=== PATIENT | male | born 1960 | race African-American/Black ===

== ENCOUNTER → 2018-01-23 | Emergency (ER) | payer SELFPAY, OTHER | END | disposition left against medical advice (07) | LOC: E/R 06:16 | DX: Z53.21 Procedure and treatment not carried out due to patient leaving prior to being seen by health care provider (principal) ==

== ENCOUNTER 2018-04-19 08:45 | Inpatient (IN) | payer OTHER ==
[~2018-04-19 08:45] MED LIST: ETOMIDATE 20 MG INJ; SUCCINYLCHOLINE CHLORIDE 100 MG/5 ML SYG IV
[2018-04-19] MEDS ORDERED: PROPOFOL 100 ML (09:22)
[2018-04-19] MEDS: ASPIRIN 300 MG SUPP PR (09:24)
[2018-04-19] MEDS: FUROSEMIDE 40 MG INJ IV (09:24)
[2018-04-19] MEDS: MIDAZOLAM (DRIP) 50 mg/50 mL 50 ML IV ×3 (09:25→14:12)
[2018-04-19] MEDS: SOD CHLORIDE 0.9% 1,000 ML IV ×5 (09:25→20:50)
[2018-04-19 09:26] LABS: HEMATOCRIT 44.9 % (42.0-52.0); HEMOGLOBIN 14.6 g/dl (14.0-18.0); MEAN CORPUSCULAR HEMOGLOBIN 29.2 pg (29.0-33.0); MEAN CORPUSCULAR HGB CONC 32.5 g/dl (32.0-37.0); MEAN CORPUSCULAR VOLUME 89.8 fl (82.0-101.0); MEAN PLATELET VOLUME 9.8 fl (7.4-10.4); PLATELET COUNT 388 10^3/UL (140-415); POSITIVE DIFF @See below; RED CELL DISTRIBUTION WIDTH 15.5 % (11.5-14.5)
[2018-04-19 09:26] LABS: WHITE BLOOD COUNT 11.2 10^3/ul (4.8-10.8)
[2018-04-19 09:29] LABS: ADD MAN DIFF? YES
[2018-04-19] MEDS: PROPOFOL 100 ML IV ×3 (09:30→15:13)
[2018-04-19 09:47] LABS: ALANINE AMINOTRANSFERASE 11 IU/L (13-69); ALBUMIN 3.6 g/dl (3.3-4.9); ALBUMIN/GLOBULIN RATIO 1.05; ALKALINE PHOSPHATASE 62 IU/L (42-121); ANION GAP 18 (8-16); ASPARTATE AMINO TRANSFERASE 25 IU/L (15-46); BILIRUBIN,INDIRECT 0.8 mg/dl (0-1.1); BILIRUBIN,TOTAL 0.8 mg/dl (0.2-1.3); BLOOD UREA NITROGEN 18 mg/dl (7-20); CALCIUM 8.3 mg/dl (8.4-10.2); CARBON DIOXIDE 18 mmol/L (21-31); CHLORIDE 103 mmol/L (97-110); CREATININE 1.83 mg/dl (0.61-1.24); GLUCOSE 148 mg/dl (70-220); LIPASE 54 U/L (23-300); POTASSIUM 3.4 mmol/L (3.5-5.1); SODIUM 136 mmol/L (135-144)
[2018-04-19] MEDS: IOHEXOL 350MG/ML 50 ML BTL (09:48)
[2018-04-19] MEDS: SOD CHLORIDE 0.9% 100 ML (09:48)
[2018-04-19] MEDS: IOHEXOL 100 ML (09:48)
[2018-04-19] MEDS: LORAZEPAM 2 MG INJ IV (09:54)
[2018-04-19 09:58] LABS: TROPONIN-I < 0.012 ng/ml (0.000-0.120)
[2018-04-19 10:24] LABS: AADO2 Arterial 602.7 mmHg (7.0-24.0); Allen Test ACCEPTAB; Arterial Base Excess -12.5 mmol/L (-3.0-3); Arterial Blood Gas Oxygen Sat 93.3 mmHG (95.0-98.0); Arterial COHb 1.3 % (0.0-3.0); Arterial Fraction of Oxyhgb 91.9 % (93.0-99.0); Arterial HCO3 13.8 mmol/L (22.0-26.0); Arterial MetHb 0.2 % (0.0-1.5); Arterial Total Hemglobin 14.4 g/dl (12.0-18.0); Arterial pCO2 33.2 mmhg (35-45); MODE VENT - AC; Site Left Radial
[2018-04-19] MEDS: CEFTRIAXONE 1 GM/50 ML (PMX) 50 ML IVPB (10:37)
[2018-04-19 10:49] LABS: ANISOCYTOSIS 1+ (0-0); BAND NEUTROPHILS #M 4.9 10^3/ul (0.0-0.6); BAND NEUTROPHILS % (M) 44 % (0-4); GIANT THROMBO% (M) 1 % (0-0); LYMPHOCYTES % (M) 9 % (15-51); METAMYELOCYTES #M 0.3 10^3/ul (0.0-0.0); METAMYELOCYTES %M 3 % (0-0); MICROCYTOSIS 1+ (0-0); MONOCYTE #M 0.6 10^3/ul (0.3-0.9); MONOCYTES % (M) 6 % (0-11); PLATELET ESTIMATE NORMAL; POIKILOCYTOSIS 1+ (0-0); POLYCHROMASIA 3+ (0-0); REACTIVE LYMPHOCYTES #M 0.2 10^3/ul (0.0-0.0); REACTIVE LYMPHOCYTES% (M) 2 % (0-0); SEG NEUT #M 4.6 10^3/ul (1.6-7.5); SEGMENTED NEUTROPHILS (M) % 36 % (39-77); SMUDGE%M 2 % (0-0)
[2018-04-19] MEDS ORDERED: VANCOMYCIN IV PER PHARMACY XX (11:00)
[2018-04-19] MEDS ORDERED: ACETAMINOPHEN 650 MG SUPP PR (11:00)
[2018-04-19] MEDS ORDERED: IPRATROPIUM (HFA) 12.9 GM INHALER INH (11:00)
[2018-04-19] MEDS ORDERED: BISACODYL 10 MG SUPP PR (11:00)
[2018-04-19] MEDS ORDERED: MAGNESIUM HYDROXIDE 30ML CUP PO (11:00)
[2018-04-19] MEDS ORDERED: ALBUTEROL HFA 8 GM INHALER INH (11:00)
[2018-04-19] MEDS ORDERED: NITROGLYCERIN (SL) 0.4 MG TAB SL (11:00)
[2018-04-19] MEDS ORDERED: ONDANSETRON 4 MG INJ IV (11:00)
[2018-04-19] MEDS ORDERED: DOCUSATE SODIUM 100 MG CAP PO (11:00)
[2018-04-19] MEDS ORDERED: LORAZEPAM 2 MG INJ IV (11:00)
[2018-04-19] MEDS ORDERED: morphine 2 MG INJ IV (11:00)
[2018-04-19] MEDS: AZITHROMYCIN 500MG/NS (PMX) 250 ML IVPB (11:19)
[2018-04-19] MEDS ORDERED: FENTAnyl (DRIP) 1000 mcg/100mL 100 ML IV (12:30)
[2018-04-19] MEDS: NICOTINE (21 MG/24 HR) PATCH TRANSDERM ×2 (12:30→14:11)
[2018-04-19] MEDS: IPRATROPIUM (HFA) 12.9 GM INHALER INH ×3 (13:00→21:00)
[2018-04-19] MEDS: ALBUTEROL HFA 8 GM INHALER INH ×3 (13:00→21:00)
[2018-04-19 13:19] LABS: BENZODIAZEPINES Negative (NEGATIVE); COCAINE Negative (NEGATIVE)
[2018-04-19 13:30] LABS: BARBITURATES Negative (NEGATIVE); OPIATES Negative (NEGATIVE)
[2018-04-19 13:32] LABS: AMPHETAMINE/METHAMPHETAMINE POSITIVE (NEGATIVE); CANNABINOIDS Positive (NEGATIVE)
[2018-04-19] MEDS: HEPARIN 5,000 UNIT/0.5 ML VIAL SC ×2 (13:47→22:00)
[2018-04-19] MEDS: CEFEPIME 2GM/50 ML (PMX) 50 ML IVPB (14:00)
[2018-04-19 14:18] LABS: ANION GAP 13 (8-16); BLOOD UREA NITROGEN 22 mg/dl (7-20); CALCIUM 7.4 mg/dl (8.4-10.2); CARBON DIOXIDE 18 mmol/L (21-31); CHLORIDE 109 mmol/L (97-110); CREATININE 1.88 mg/dl (0.61-1.24); GLUCOSE 118 mg/dl (70-220); POTASSIUM 3.6 mmol/L (3.5-5.1); SODIUM 136 mmol/L (135-144)
[2018-04-19] MEDS: VANCOMYCIN 2 GM in SOD CHLORIDE 0.9% 500 ML IVPB (14:34)
[2018-04-19] MEDS: LIDOCAINE 1% (MPF) 5 ML VIAL SC (15:00)
[2018-04-19 15:44] LABS: Arterial Base Excess -11.2 mmol/L (-3.0-3); Arterial Blood Gas Oxygen Sat 92.4 mmHG (95.0-98.0); Arterial COHb 0.3 % (0.0-3.0); Arterial Fraction of Oxyhgb 91.8 % (93.0-99.0); Arterial HCO3 16.2 mmol/L (22.0-26.0); Arterial MetHb 0.3 % (0.0-1.5); Arterial pCO2 41.6 mmhg (35-45); MODE VENT - AC; Site Right Brachial
[2018-04-19] MEDS: SODIUM BICARBONATE (IV ADD) 150 MEQ in DEXTROSE 5% 1,000 ML IV ×2 (16:30→17:29)
[2018-04-19] MEDS: ACETAMINOPHEN 650MG/20.3ML CUP PO (16:31)
[2018-04-19] MEDS ORDERED: PHENYLephrine 20MG IN 250 ML 250 ML (18:58)
[2018-04-19] MEDS: PHENYLephrine 40 MG in DEXTROSE 5% 496 ML IV (19:00)
[2018-04-19] MEDS ORDERED: CEFEPIME 1GM/50 ML (PMX) 50 ML IVPB (21:00)
[2018-04-19] MEDS: FAMOTIDINE 20 MG INJ IV (21:06)
[2018-04-19] MEDS ORDERED: NORepinephrine 8MG/250 ML (PMX 250 ML (21:52)
[2018-04-19] MEDS ORDERED: DOPamine-D5W 1.6 MG/ML 250 ML IV (22:30)
[2018-04-19] MEDS ORDERED: NORepinephrine 8MG/250 ML (PMX 250 ML IV (22:30)
[2018-04-19] MEDS ORDERED: VASOPRESSIN 60 UNIT in DEXTROSE 5% 57 ML IV (22:30)
[2018-04-19] MEDS ORDERED: EPINEPHrine 4 MG in DEXTROSE 5% 246 ML IV (22:30)
[2018-04-19] MEDS ORDERED: DOPamine-D5W 1.6 MG/ML 250 ML (22:31)
[2018-04-19 22:46] LABS: ABNORMAL IP MESSAGE 1; HEMATOCRIT 34.1 % (42.0-52.0); MEAN CORPUSCULAR HEMOGLOBIN 29.8 pg (29.0-33.0); MEAN CORPUSCULAR HGB CONC 29.3 g/dl (32.0-37.0); MEAN CORPUSCULAR VOLUME 101.5 fl (82.0-101.0); MEAN PLATELET VOLUME 9.8 fl (7.4-10.4); NUCLEATED RED BLOOD CELLS% 1.9 /100WBC (0.0-0.0); PLATELET COUNT 216 10^3/UL (140-415); POSITIVE DIFF @See below; RED BLOOD COUNT 3.36 10^6/ul (4.70-6.10); RED CELL DISTRIBUTION WIDTH 16.3 % (11.5-14.5)
[2018-04-19 22:46] LABS: WHITE BLOOD COUNT 5.3 10^3/ul (4.8-10.8)
[2018-04-19 22:51] LABS: ADD MAN DIFF? YES
[2018-04-19 23:04] LABS: ALBUMIN 1.6 g/dl (3.3-4.9); ALKALINE PHOSPHATASE 36 IU/L (42-121); ANION GAP 22 (8-16); BILIRUBIN,INDIRECT 0.2 mg/dl (0-1.1); BILIRUBIN,TOTAL 0.2 mg/dl (0.2-1.3); BLOOD UREA NITROGEN 21 mg/dl (7-20); CALCIUM 6.6 mg/dl (8.4-10.2); CARBON DIOXIDE 11 mmol/L (21-31); CHLORIDE 107 mmol/L (97-110); CREATININE 2.95 mg/dl (0.61-1.24); GLUCOSE 233 mg/dl (70-220); POTASSIUM 5.1 mmol/L (3.5-5.1); SODIUM 135 mmol/L (135-144); TOTAL PROTEIN 3.6 g/dl (6.1-8.1)
[2018-04-19 23:15] LABS: TROPONIN-I 0.036 ng/ml (0.000-0.120)
[2018-04-19 23:20] LABS: ALANINE AMINOTRANSFERASE 1757 IU/L (13-69)
[2018-04-19 23:22] LABS: ANISOCYTOSIS 2+ (0-0); BAND NEUTROPHILS #M 2.2 10^3/ul (0.0-0.6); BAND NEUTROPHILS % (M) 42 % (0-4); BASOPHILS % (M) 1 % (0-2); BURR CELLS 2+ (0-0); EOSINOPHILS % (M) 2 % (0-7); ERYTHROBLAST% (NRBC) (M) 1 % (0-0); GIANT THROMBO% (M) 3 % (0-0); LYMPHOCYTES #M 1.4 10^3/ul (0.8-2.9); LYMPHOCYTES % (M) 27 % (15-51); METAMYELOCYTES #M 0.6 10^3/ul (0.0-0.0); METAMYELOCYTES %M 12 % (0-0); MYELOCYTES #M 0.6 10^3/ul (0.0-0.0); MYELOCYTES % (M) 13 % (0-0); PLATELET ESTIMATE NORMAL; POIKILOCYTOSIS 2+ (0-0); POLYCHROMASIA 1+ (0-0); SEG NEUT #M 0.3 10^3/ul (1.6-7.5); SEGMENTED NEUTROPHILS (M) % 3 % (39-77); SMUDGE%M 7 % (0-0)
[2018-04-19 23:24] LABS: PARTIAL THROMBOPLASTIN TIME 100.2 Sec (25.0-35.0)
[2018-04-19 23:26] LABS: LACTIC ACID 15.8 mmol/L (0.5-2.0)
[2018-04-20] MEDS ORDERED: VANCOMYCIN 1.5 GM in SOD CHLORIDE 0.9% 250 ML IVPB (12:30)
== END 2018-04-20 03:30 | disposition expired | DRG 208 ==
LOC: E/R 08:45 → ICU 10:32
PROC: 5A1935Z Respiratory Ventilation, Less than 24 Consecutive Hours (ICD-10-PCS; principal; 2018-04-19)
PROC: 0BH17EZ Insertion of Endotracheal Airway into Trachea, Via Natural or Artificial Opening (ICD-10-PCS; 2018-04-19)
PROC: 02HV33Z Insertion of Infusion Device into Superior Vena Cava, Percutaneous Approach (ICD-10-PCS; 2018-04-19)
PROC: 5A12012 Performance of Cardiac Output, Single, Manual (ICD-10-PCS; 2018-04-20)
DX: J96.01 Acute respiratory failure with hypoxia (principal); J18.9 Pneumonia, unspecified organism; N17.0 Acute kidney failure with tubular necrosis; A41.9 Sepsis, unspecified organism; R65.21 Severe sepsis with septic shock; J44.0 Chronic obstructive pulmonary disease with (acute) lower respiratory infection; J44.1 Chronic obstructive pulmonary disease with (acute) exacerbation; I10 Essential (primary) hypertension; I27.21 Secondary pulmonary arterial hypertension; I46.8 Cardiac arrest due to other underlying condition; E87.6 Hypokalemia; F17.200 Nicotine dependence, unspecified, uncomplicated; Z79.82 Long term (current) use of aspirin
CPT/HCPCS: 36415; 36569; 36600; 71045; 71275; 76937; 80048; 80053; 80307; 82803; 82962; 83605; 83690; 84484; 85025; 85335; 87040; 92950; 93005; 94002; 94640; 96361; 96365; 96367; 96375; 99291-25